=== PATIENT | male | born 1970 | race Two or more races ===

== ENCOUNTER → 2020-11-21 08:00 | Outpatient (CLI) | payer OTHER ==
[~2020-11-21] VITALS: Ht 170.2 cm; Wt 136.1 kg
[~2020-11-21 08:00] MED LIST: ADALAT CC30 MG PO; ADALAT CC60 MG PO; ATORVASTATIN CA20 MG PO; BUMETANIDE2 MG PO; CARVEDILOL25 MG PO; COZAAR50 MG PO; GABAPENT PO; GABAPENTIN400 MG PO; HYDRALAZINE HC100 MG PO; JANUVIA25 MG PO; LANTUS; LIPITO PO; PEPCID AC20 MG PO; RESTORIL PO; RESTORIL7.5 MG PO; SYNTHROID100 MCG PO; TRAZODONE HCL100 MG PO; ZAROXOLYN5 MG PO; ZYLOPRIM100 M1 PO; [UNRECOGNIZED DRUG - OTHER] PO
== END | disposition home or self-care (01) ==
LOC: LAB 08:00 → SURH 11-27 10:45 → EDSTATUS 11-27 10:45
PROVIDERS: ATTEND Colon & Rectal Surgery
DX: C18.0 Malignant neoplasm of cecum (principal); D12.0 Benign neoplasm of cecum; Z86.010 Personal history of colon polyps; K92.1 Melena; Z03.818 Encounter for observation for suspected exposure to other biological agents ruled out

== ENCOUNTER 2020-11-23 09:03 | Inpatient (IN) | payer OTHER ==
[~2020-11-23] VITALS: Ht 170.2 cm; Wt 136.1 kg
[~2020-11-23 09:03] MED LIST changes: -ATORVASTATIN CA20 MG PO; -GABAPENTIN400 MG PO; -RESTORIL7.5 MG PO; -ZYLOPRIM100 M1 PO
[2020-11-26] MEDS ORDERED: ATORVASTATIN CA20 MG PO (07:57)
[2020-11-26] MEDS ORDERED: RESTORIL7.5 MG PO (07:58)
[2020-11-26] MEDS ORDERED: GABAPENTIN400 MG PO (07:58)
[2020-11-26] MEDS ORDERED: ZYLOPRIM100 M1 PO (07:59)
== END 2020-12-19 18:20 | disposition expired | DRG 981 ==
LOC: ER 09:03 → MEDI 12:11 → SEC-K 12:11 → MEDI 15:43 → SURG 11-27 15:46 → ICU 12-11 04:08
PROVIDERS: Colon & Rectal Surgery; ADMIT Internal Medicine Geriatric Medicine; ATTEND Internal Medicine Geriatric Medicine
PROC: 30233N1 Transfusion of Nonautologous Red Blood Cells into Peripheral Vein, Percutaneous Approach (ICD-10-PCS; 2020-11-27)
PROC: 0DTF4ZZ Resection of Right Large Intestine, Percutaneous Endoscopic Approach (ICD-10-PCS; principal; 2020-11-27 17:15)
PROC: 0BH17EZ Insertion of Endotracheal Airway into Trachea, Via Natural or Artificial Opening (ICD-10-PCS; 2020-12-11)
PROC: 5A1955Z Respiratory Ventilation, Greater than 96 Consecutive Hours (ICD-10-PCS; 2020-12-11)
PROC: 02HV33Z Insertion of Infusion Device into Superior Vena Cava, Percutaneous Approach (ICD-10-PCS; 2020-12-13)
PROC: B518ZZA Fluoroscopy of Superior Vena Cava, Guidance (ICD-10-PCS; 2020-12-13)
PROC: 5A1D70Z Performance of Urinary Filtration, Intermittent, Less than 6 Hours Per Day (ICD-10-PCS; 2020-12-13)
DX: D64.9 Anemia, unspecified (principal); J18.9 Pneumonia, unspecified organism; J96.01 Acute respiratory failure with hypoxia; A41.9 Sepsis, unspecified organism; N17.8 Other acute kidney failure; K56.7 Ileus, unspecified; E87.1 Hypo-osmolality and hyponatremia; J98.11 Atelectasis; E87.2 Acidosis; D12.2 Benign neoplasm of ascending colon; I12.9 Hypertensive chronic kidney disease with stage 1 through stage 4 chronic kidney disease, or unspecified chronic kidney disease; N18.32 Chronic kidney disease, stage 3b; E03.8 Other specified hypothyroidism; Z20.822 Contact with and (suspected) exposure to COVID-19; E66.01 Morbid (severe) obesity due to excess calories; J44.9 Chronic obstructive pulmonary disease, unspecified; J45.20 Mild intermittent asthma, uncomplicated; Z79.4 Long term (current) use of insulin; E11.65 Type 2 diabetes mellitus with hyperglycemia; F43.22 Adjustment disorder with anxiety; D12.0 Benign neoplasm of cecum